=== PATIENT | male | born 2000 | race Caucasian/White ===

== ENCOUNTER 2023-02-01 01:20 | Emergency (ER) | payer OTHER ==
[~2023-02-01] VITALS: Ht 170.2 cm; Wt 113.4 kg
[2023-02-01 01:31] VITALS: BP 132/76; TEMP 98.7
[2023-02-01] MEDS ORDERED: ONDA4TAB5 PO (01:35)
[2023-02-01] MEDS ORDERED: ONDANSETRON 4 MG TAB.RAPDIS ONE (01:38)
[2023-02-01] MEDS ORDERED: ONDANSETRON 4 MG TAB.RAPDIS SL ONE (02:00)
[2023-02-01 02:25] VITALS: O2SAT 98
== END 2023-02-01 02:26 ==
LOC: ER 01:23
DX: R11.2 Nausea with vomiting, unspecified (principal); Z79.899 Other long term (current) drug therapy
CPT/HCPCS: 99283; Q0162